=== PATIENT | male | born 1980 | race American Indian/Alaskan Native ===

== ENCOUNTER 2017-02-18 09:00 | Emergency (ER) | payer MEDICAID ==
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
[2017-02-18 11:07] VITALS: BP 130/70
== END 2017-02-18 11:10 | disposition home or self-care (01) ==
LOC: ED 09:00
DX: M54.5 Low back pain (principal); F17.200 Nicotine dependence, unspecified, uncomplicated
CPT/HCPCS: 99282

== ENCOUNTER 2017-02-21 05:38 | Emergency (ER) | payer MEDICAID ==
[2017-02-21 06:06] VITALS: BP 141/97
[2017-02-21 06:35] LABS: Basophils % (Auto) 0.7 % (0.0-1.8); Eosinophils % (Auto) 2.1 % (0.0-4.3); Hematocrit 36.5 % (35.5-45.6); Hemoglobin 12.3 gm/dl (11.8-15.2); Mean Corpuscular HGB Conc 34 % (32-34); Mean Corpuscular Hemoglobin 28 pg (28-32); Mean Corpuscular Volume 84 fl (84-94); Platelet Count 169 K/mm3 (140-440); Red Blood Count 4.37 M/mm3 (3.65-5.03); Red Cell Distribution Width 14.7 % (13.2-15.2); White Blood Count 6.9 K/mm3 (4.5-11.0)
[2017-02-21 06:48] LABS: Anion Gap 20 mmol/L; Blood Urea Nitrogen 21 mg/dL (9-20); Calcium 9.4 mg/dL (8.4-10.2); Carbon Dioxide 23 mmol/L (22-30); Glucose 117 mg/dL (75-100); Potassium 4.4 mmol/L (3.6-5.0); Sodium 139 mmol/L (137-145)
== END 2017-02-21 10:53 | disposition left against medical advice (07) ==
LOC: ED 05:38
DX: Z76.0 Encounter for issue of repeat prescription (principal); Z53.21 Procedure and treatment not carried out due to patient leaving prior to being seen by health care provider
CPT/HCPCS: 36415; 80048; 85025; G0480; 80320

== ENCOUNTER 2019-02-16 23:05 | Emergency (ER) | payer MEDICAID ==
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
[2019-02-17 00:22] LABS: Basophils # (Auto) 0.1 K/mm3 (0.0-0.1); Basophils % (Auto) 1.2 % (0.0-1.8); Eosinophils # (Auto) 0.1 K/mm3 (0.0-0.4); Hemoglobin 12.9 gm/dl (11.8-15.2); Lymphocytes # (Auto) 1.9 K/mm3 (1.2-5.4); Lymphocytes % (Auto) 27.7 % (13.4-35.0); Mean Corpuscular HGB Conc 33 % (32-34); Mean Corpuscular Volume 87 fl (84-94); Monocytes # (Auto) 0.4 K/mm3 (0.0-0.8); Monocytes % (Auto) 6.5 % (0.0-7.3); Platelet Count 170 K/mm3 (140-440); Red Cell Distribution Width 13.3 % (13.2-15.2)
[2019-02-17 00:30] LABS: Bilirubin,Urine NEG (Negative); Blood,Urine NEG (Negative); Color,Urine Amber (Yellow); Mucus,Urine 3+ /HPF; Urobilinogen,Urine < 2.0 mg/dL (<2.0)
[2019-02-17 00:37] LABS: Amphetamine Screen,Urine PRESUMPTIVE NEGATIVE; Benzodiazepines Screen,Urine PRESUMPTIVE NEGATIVE; Cocaine Screen,Urine PRESUMPTIVE NEGATIVE; Methadone Screen,Urine PRESUMPTIVE NEGATIVE; Opiate Screen,Urine PRESUMPTIVE NEGATIVE
[2019-02-17 00:43] LABS: BUN/Creatinine Ratio 9; Blood Urea Nitrogen 9 mg/dL (9-20); Calcium 9.4 mg/dL (8.4-10.2); Hemolysis Index 6
[2019-02-17 01:11] LABS: Cannabinoid Screen,Urine PRESUMPTIVE POSITIVE
--- NOTE | 2019-02-17 13:22 | Consultation ---
History of Present Illness - Reason for Consult Consult date: 02/17/19 Reason for consult: Mental Health EValuation Requesting physician: RICO OLIVIA III - Chief Complaint Chief complaint: "I was brought here" - History of Present Psychiatric Illness 38 y.o. who presented to the ER for acute psychosis. Today the patient was disorganized during the assessment. He had to be redirected throughout the interview. He was able to state that he receive the monthly Invega injection. The last injection was given Aug 2018 per the patient. He is adamant that he isn't sure why he was brought to the ER. Overall, the patient wasn't a good historian. No gestures of SI/HI's. Medications and Allergies Allergies Allergy/AdvReac Type Severity Reaction Status Date / Time No Known Allergies Allergy Verified 07/12/14 13:36 Home Medications Medication Instructions Recorded Confirmed Last Taken Type HYDROcodone/APAP 5-325 [[place] 1 each PO Q6HR PRN #8 tablet 02/18/17 Unknown Rx 5/325] Past psychiatric history - Past Medical History Past Medical History: No medical history Past Surgical History: No surgical history - past Psychiatric treatment and history psychiatric treatment history: Several inpatient psy settings in the past. unable to obtain a [facility] psy hx. - Social History Social history: lives with family Mental Status Exam - Vital signs Last Vital Signs Temp 98.4 F 02/17/19 09:00 Pulse 60 02/17/19 09:00 Resp 18 02/17/19 09:00 BP 144/84 02/17/19 09:00 Pulse Ox 100 02/17/19 09:00 - Exam Narrative exam: MSE: Appearance: disheveled Behavior: regular eye contact Speech: regular rate and tone Mood: "okay" Affect: congruent to mood Thought Process: disorganized Thought Content: no gestures of SI/HI's Motor Activity: lying in bed Cognition: A/O x 3 Insight: poor Judgment: poor Results Result Diagrams: 02/17/19 00:04 02/17/19 00:04 Abnormal lab results 02/16/19 02/17/19 02/17/19 Range/Units 23:50 00:04 00:04 Potassium (3.6-5.0) mmol/L Glucose (75-100) mg/dL Ur Specific [place] 1.038 H (1.003-1.030) Salicylates < 0.3 L (2.8-20.0) mg/dL Acetaminophen < 5.0 L (10.0-30.0) ug/mL 02/17/19 Range/Units 00:04 Potassium 3.4 L (3.6-5.0) mmol/L Glucose 183 H (75-100) mg/dL Ur Specific [place] (1.003-1.030) Salicylates (2.8-20.0) mg/dL Acetaminophen (10.0-30.0) ug/mL All other labs normal. Assessment and Plan Assessment and plan: Impression: Unspecified Psychosis. Cannabis Use DO. Today the patient was disorganized during the assessment. DDx: Schizophrenia, Bipolar DO with psychosis, Substance Induced Psychosis Recommendations/Plan: Continue 1013. Start Invega 3 mg PO daily for psychosis. Attempted to discuss possible metabolic side effects of Invega with the patient. Baseline A1c/Lipid panel ordered for the AM. Dispo: The patient was referred to inpatient psy services. Staffed with Dr Rosemarie Castillo.
[2019-02-17] MEDS: INVEGA PO SCH (14:16)
[2019-02-18] MEDS ORDERED: GEODON IM ONE ×2 (01:56→02:00)
[2019-02-18] MEDS ORDERED: ATIVAN IM STA (01:57)
[2019-02-18] MEDS ORDERED: WATER FOR INJ Sterile (PF) 10 ML ONE (02:00)
[2019-02-18] MEDS ORDERED: ATIVAN ONE (02:01)
--- NOTE | 2019-02-18 10:49 | Progress Note ---
Subjective - Reason for Consult Consult date: 02/18/19 Reason for consult: Psychiatry Follow-up - Chief Complaint Chief complaint: "I get a shot" 38 y.o. who presented to the ER for acute psychosis. Today the patient was still disorganized during the assessment. He is adamant that he need a injection (Invega). He had to be redirected several times to keep him on topic when asked questions. He denies SI/HI's and VH's. He could not confirm or deny AH's. No indications of side effects from his medication. Mental Status Exam - Vital signs Last Vital Signs Temp 98.3 F 02/18/19 07:00 Pulse 59 L 02/18/19 07:00 Resp 16 02/18/19 07:00 BP 135/75 02/18/19 07:00 Pulse Ox 100 02/18/19 07:00 - Exam Narrative exam: MSE: Appearance: calm, disheveled Behavior: regular eye contact Speech: regular rate and tone Mood: "okay" Affect: congruent to mood Thought Process: still disorganized Thought Content: denies SI/HI's and VH's Motor Activity: lying in bed Cognition: A/O x 3 Insight: poor Judgment: poor Assessment and Plan Impression: Unspecified Psychosis. Cannabis Use DO. Today the patient was still disorganized during the assessment. DDx: Schizophrenia, Bipolar DO with psychosis, Substance Induced Psychosis Recommendations/Plan: Continue 1013 and Invega 3 mg PO daily for psychosis. Attempted to discuss possible metabolic side effects of Invega with the patient. Dispo: The patient was referred to inpatient psy services. Will staff with Dr Rosemarie Castillo.
[2019-02-18] MEDS: INVEGA PO SCH (11:00)
[2019-02-18 12:12] LABS: Chol/HDL Ratio 2.12 %
[2019-02-19] MEDS ORDERED: LIDOCAINE VISCOUS 2% PO ONE (06:13)
[2019-02-19] MEDS ORDERED: ALUM-MAG HYDROX-SIMETH 200-200-20MG/5ML PO ONE (10:00)
[2019-02-19] MEDS: INVEGA PO SCH (11:00)
--- NOTE | 2019-02-19 12:08 | Progress Note ---
Subjective - Reason for Consult Consult date: 02/19/19 Reason for consult: Psychiatry Follow-up - Chief Complaint Chief complaint: "I'm trying to move on" 38 y.o. who presented to the ER for acute psychosis. Today the patient was irritable and disorganized during the assessment. He's experiencing loose associations when asked questions. His topic of discussion are irrelevant throughout the interview. He denies SI/HI's and AVH's. No indications of side effects from his medication. Mental Status Exam - Vital signs Last Vital Signs Temp 98.9 F 02/18/19 21:30 Pulse 78 02/18/19 21:30 Resp 18 02/18/19 21:30 BP 155/89 02/18/19 21:30 Pulse Ox 99 02/18/19 21:30 - Exam Narrative exam: MSE: Appearance: disheveled Behavior: regular eye contact Speech: regular rate and tone Mood: irritable Affect: congruent to mood Thought Process: still disorganized Thought Content: denies SI/HI's and VH's Motor Activity: lying in bed Cognition: A/O x 3 Insight: poor Judgment: poor Assessment and Plan Impression: Unspecified Psychosis. Cannabis Use DO. Today the patient was still disorganized during the assessment. DDx: Schizophrenia, Bipolar DO with psychosis, Substance Induced Psychosis Recommendations/Plan: Continue 1013 and increase Invega to 6 mg PO daily for psychosis. Attempted to discuss possible metabolic side effects of Invega with the patient. Dispo: The patient was referred to inpatient psy services. Staffed with Dr Rosemarie Castillo.
[2019-02-19] MEDS ORDERED: ATIVAN IM ONE (12:23)
[2019-02-19] MEDS ORDERED: ATIVAN ONE (12:27)
--- NOTE | 2019-02-20 09:47 | Progress Note ---
Subjective - Reason for Consult Consult date: 02/20/19 Reason for consult: Psychiatry Follow-up - Chief Complaint Chief complaint: "I'm going home today" 38 y.o. who presented to the ER for acute psychosis. Today the patient was still irritable and disorganized during the assessment. He continue to be preoccupied. He denies SI/HI's and VH's. No indications of side effects from his medication. Mental Status Exam - Vital signs Last Vital Signs Temp 98.6 F 02/20/19 01:00 Pulse 106 H 02/20/19 01:00 Resp 18 02/20/19 01:00 BP 132/90 02/20/19 01:00 Pulse Ox 100 02/20/19 01:00 - Exam Narrative exam: MSE: Appearance: disheveled Behavior: regular eye contact Speech: rapid Mood: still irritable Affect: congruent to mood Thought Process: still disorganized Thought Content: denies SI/HI's and VH's Motor Activity: lying in bed Cognition: A/O x 3 Insight: poor Judgment: poor Assessment and Plan Impression: Unspecified Psychosis. Cannabis Use DO. Today the patient was still disorganized during the assessment. DDx: Schizophrenia, Bipolar DO with psychosis, Substance Induced Psychosis Recommendations/Plan: Continue 1013 and iInvega 6 mg PO daily for psychosis. Attempted to discuss possible metabolic side effects of Invega with the patient. Dispo: The patient was accepted at [facility] for inpatient psy services. Staffed with Dr Rosemarie Castillo.
[2019-02-20 09:53] VITALS: BP 138/89
[2019-02-20] MEDS ORDERED: INVEGA PO SCH (10:00)
== END 2019-02-20 09:54 ==
LOC: EEVIPCON 23:05 → ED 23:05
DX: F29 Unspecified psychosis not due to a substance or known physiological condition (principal); F22 Delusional disorders; F20.1 Disorganized schizophrenia; F17.200 Nicotine dependence, unspecified, uncomplicated; R73.9 Hyperglycemia, unspecified; Z98.890 Other specified postprocedural states
CPT/HCPCS: 36415; 80048; 80061; 80307; 81001; 82962; 83036; 85025; 96372; 99285; J2060; J3486; 80320; G0480

== ENCOUNTER 2019-08-06 11:55 | Emergency (ER) | payer MEDICAID ==
--- NOTE | 2019-08-06 13:09 | Emergency Department Report ---
Chief Complaint: Medical Clearance Stated Complaint: INJECTION Time Seen by Provider: 08/06/19 13:08 - HPI History of Present Illness: 39 y/o male here for routine haldol maintenance injection no pain no complaints gcs 15 no hi no si exam wnl no emergent condition present given outpatient resources S1, S2, regular rate and rhythm. No murmurs, rubs or gallops. Breath sounds clear to auscultation bilaterally. Abdomen soft and benign, with no rebound, guarding or peritoneal signs. Head is normocephalic atraumatic. The neck is supple. There is no adenopathy. Extraocular movements are intact. there is no facial droop. The tongue is midline. The extraocular movements are intact bilaterally. Hearing is intact. Phonation is within normal limits. Speech is fluid and luccid. There is 5 out of 5 strength in 4 extremities. Sensation is intact to light touch in 4 extremities. in. There is a normal gait. Vital Signs 08/06/19 13:05 Temperature 98.2 F Pulse Rate 78 Respiratory 20 Rate Blood Pressure 120/80 O2 Sat by Pulse 100 Oximetry MSE screening note: Focused history and physical exam performed. Due to findings the following was ordered: ED Disposition for MSE Clinical Impression: General medical exam Disposition: Z-07 MED SCREENING EXAM-LEFT Is pt being admited?: No Does the pt Need Aspirin: No Condition: Stable Additional Instructions: continue outpatient medications follow up with a pmd or psychiatrist within the next 2 weeks return right away if worse Referrals: BONI MONIQUE MD [Staff Physician] - 3-5 Days [facility] [Provider Group] - 3-5 Days [facility] [Provider Group] - 3-5 Days [facility] [Outside] - 3-5 Days
[2019-08-06 13:15] VITALS: BP 120/80
== END 2019-08-06 15:46 | disposition left against medical advice (07) ==
LOC: ED 11:55
DX: Z00.00 Encounter for general adult medical examination without abnormal findings (principal)
CPT/HCPCS: 99281

== ENCOUNTER 2020-04-24 19:59 | Emergency (ER) | payer MEDICAID ==
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
[2020-04-24] MEDS ORDERED: IBUPROFEN 800 MG TAB PO ONE (23:18)
[2020-04-25 00:32] VITALS: BP 124/80
== END 2020-04-24 23:41 | disposition home or self-care (01) ==
LOC: ED 19:59
DX: M54.5 Low back pain (principal); G89.29 Other chronic pain; F20.0 Paranoid schizophrenia; F17.200 Nicotine dependence, unspecified, uncomplicated; Z98.890 Other specified postprocedural states; Z79.1 Long term (current) use of non-steroidal anti-inflammatories (NSAID); Z79.899 Other long term (current) drug therapy
CPT/HCPCS: 99282

== ENCOUNTER 2020-05-25 18:14 | Emergency (ER) | payer MEDICAID ==
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
--- NOTE | 2020-05-25 20:17 | Cat Scan Report ---
CT head/brain wo con INDICATION / CLINICAL INFORMATION: 39 years Male; Syncope/altered mental status. TECHNIQUE: Routine CT head without contrast. All CT scans at this location are performed using CT dos e reduction for ALARA by means of automated exposure control. COMPARISON: The study is compared to the previous CT of 06/26/2014. FINDINGS: BRAIN / INTRACRANIAL CONTENTS: The brain appears to demonstrate appropriate attenuation without signi ficant interval change from the previous CT. The ventricular system remains within normal limits in s ize and configuration. There is no clear CT evidence of acute intracranial hemorrhage or significant mass effect. 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 SINUSES / MASTOIDS: No significant abnormality in the visualized paranasal sinuses or mastoid air martell ls. CRANIOCERVICAL JUNCTION: No significant abnormality. ADDITIONAL FINDINGS: None. IMPRESSION: 1. There is no CT evidence of acute intracranial process. Signer Name: Lui Steel MD Signed: 05/25/2020 8:12 PM Workstation Name: [id number]
[2020-05-25 20:20] LABS: Basophils % (Auto) 0.3 % (0.0-1.8); Eosinophils # (Auto) 0.1 K/mm3 (0.0-0.4); Eosinophils % (Auto) 0.7 % (0.0-4.3); Hematocrit 42.5 % (35.5-45.6); Hemoglobin 14.3 gm/dl (11.8-15.2); Lymphocytes # (Auto) 1.4 K/mm3 (1.2-5.4); Lymphocytes % (Auto) 8.4 % (13.4-35.0); Mean Corpuscular HGB Conc 34 % (32-34); Mean Corpuscular Volume 86 fl (84-94); Platelet Count 234 K/mm3 (140-440); Red Blood Count 4.93 M/mm3 (3.65-5.03); Red Cell Distribution Width 13.8 % (13.2-15.2)
[2020-05-25 20:30] LABS: INR 0.91 (0.87-1.13)
[2020-05-25 20:40] LABS: Alanine Aminotransferase 22 units/L (7-56); Albumin 4.9 g/dL (3.9-5); BUN/Creatinine Ratio 9; Blood Urea Nitrogen 9 mg/dL (9-20); Calcium 10.1 mg/dL (8.4-10.2); Creatine Kinase MB 6.4 ng/mL (0.0-4.0); Hemolysis Index 12
--- NOTE | 2020-05-25 21:00 | Cat Scan Report ---
CT cervical spine wo con INDICATION / CLINICAL INFORMATION: 39 years Male; Syncope, neck pain. TECHNIQUE: Axial CT images of the cervical spine were obtained. Sagittal and coronal reformatted images were pr oduced. All CT scans at this location are performed using CT dose reduction for ALARA by means of aut omated exposure control. COMPARISON: None available. FINDINGS: POST-SURGICAL CHANGES: None. ALIGNMENT: This mild reversal of the cervical lordosis and curvature of the cervical spine, convex to valle the left. However, there is no significant spondylolisthesis. VERTEBRAE: There is thickened disc space narrowing anteriorly at C3-4, C4-5 and C5-6 with anterior os sific information. There is no CT evidence of acute fracture involving the cervical spine. INTRAVERTEBRAL DISCS: The central disc bulge at C3-4 mildly effaces the ventral subarachnoid space. T here is also mild neural foraminal narrowing bilaterally. There is a more broad-based central disc bulge at C4-5 which appears to slightly flatten the ventral cord. There is marked right and moderate left neural foraminal narrowing. There is more focal spondylosis at C5-6 which effaces the ventral subarachnoid space. There is modera te left neural foraminal narrowing at. There is milder posterior spondylosis at C6-7. PARASPINAL SOFT TISSUES: No prevertebral soft tissue fluid collections are identified. There are mult iple cervical lymph nodes, particularly within the jugulodigastric region which are nonspecific thoug h may be reactive. ADDITIONAL FINDINGS: None. IMPRESSION: 1. There is no CT evidence of acute fracture involving the cervical spine. 2. There are multilevel degenerative changes as detailed above. Signer Name: Lui Steel MD Signed: 05/25/2020 8:55 PM Workstation Name: [id number]
[2020-05-25 22:30] LABS: Bilirubin,Urine NEG (Negative); Blood,Urine NEG (Negative); Color,Urine Yellow (Yellow); Hyaline Casts,Urine 8 /LPF; Mucus,Urine FEW /HPF; Protein,Urine <15 mg/dL mg/dL (Negative); Urobilinogen,Urine < 2.0 mg/dL (<2.0)
[2020-05-25 22:34] LABS: Amphetamine Screen,Urine Negative; Benzodiazepines Screen,Urine Negative; Cocaine Screen,Urine Negative; Methadone Screen,Urine Negative; Opiate Screen,Urine Negative
[2020-05-25 23:04] LABS: Cannabinoid Screen,Urine Positive
[2020-05-26] MEDS ORDERED: SODIUM CHLORIDE 0.9% 1000 ML 1,000 ML IV ONE ×2 (01:49→01:51)
--- NOTE | 2020-05-26 02:16 | XRay Report ---
CHEST 1 VIEW INDICATION: Leukocytosis. COMPARISON: None. FINDINGS: Support devices: None. Heart: Normal. Lungs/Pleura: No acute pulmonary or pleural findings. IMPRESSION: 1. No acute findings. Signer Name: Deshawn Girard MD Signed: 05/26/2020 2:11 AM Workstation Name: [id number]
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
[2020-05-26 12:05] VITALS: BP 105/80
== END 2020-05-26 12:20 | disposition left against medical advice (07) ==
LOC: ED 18:14
DX: F20.89 Other schizophrenia (principal); F15.10 Other stimulant abuse, uncomplicated
CPT/HCPCS: 36415; 70450; 71045; 72125; 80053; 80307; 81001; 82550; 82553; 84484; 85025; 85610; 93005; 96360; 99285; J7030; 80320; G0480

== ENCOUNTER 2020-09-14 06:48 | Emergency (ER) | payer MEDICAID ==
[2020-09-14 07:09] VITALS: BP 116/82
[2020-09-14] MEDS ORDERED: HYDROcodone/ACETAMINOPHEN 5-325 MG TAB PO ONE (07:48)
[2020-09-14] MEDS ORDERED: KETOROLAC 30 MG/1 ML INJ IM ONE (07:48)
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
== END 2020-09-14 09:04 | disposition home or self-care (01) ==
LOC: ED 06:48
DX: M54.30 Sciatica, unspecified side (principal); F17.200 Nicotine dependence, unspecified, uncomplicated; Z98.890 Other specified postprocedural states; Z79.1 Long term (current) use of non-steroidal anti-inflammatories (NSAID); Z79.899 Other long term (current) drug therapy
CPT/HCPCS: 96372; 99283; J1885

== ENCOUNTER 2021-06-01 22:27 | Emergency (ER) | payer MEDICAID ==
[2021-06-02] MEDS ORDERED: oxyCODONE /ACETAMINOPHEN 5-325MG TAB PO ONE (01:29)
[2021-06-02] MEDS ORDERED: IBUPROFEN 600 MG TAB PO ONE (01:29)
[2021-06-02] MEDS ORDERED: predniSONE 20 MG TAB PO ONE (01:29)
[2021-06-02] MEDS ORDERED: ONDANSETRON 4 MG ODT TAB PO ONE (01:30)
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
[2021-06-02 02:32] VITALS: BP 142/80
== END 2021-06-02 02:50 | disposition home or self-care (01) ==
LOC: ED 22:27
DX: M54.50 Low back pain, unspecified (principal); G89.29 Other chronic pain; M54.2 Cervicalgia; M62.830 Muscle spasm of back; F17.200 Nicotine dependence, unspecified, uncomplicated; Z79.899 Other long term (current) drug therapy
CPT/HCPCS: 99283; J7512

== ENCOUNTER 2021-06-04 04:53 | Emergency (ER) | payer MEDICAID ==
[2021-06-04] MEDS ORDERED: ZIPRASIDONE MESYLATE 20 MG VIAL IM ONE (06:32)
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
[2021-06-04] MEDS ORDERED: diphenhydrAMINE 50 MG/ML VIAL IM ONE (07:39)
--- NOTE | 2021-06-04 10:12 | Consultation ---
History of Present Illness - Reason for Consult Consult date: 06/04/21 Reason for consult: psychosis - History of Present Psychiatric Illness Amber Santos is a 40y/o male patient who presented to the ER for a psych evaluation. He was anxious and paranoid at that time. During the eval the patient was irritable, and refused to cooperate. The sitter says he had been medicated. The patient did arouse but did not cooperate. He is in the seclusion room. Psych History Unable to obtain Social History Unable to obtain REVIEW OF SYSTEMS Unable to obtain MENTAL STATUS EXAMINATION Unable to obtain Assessment and Plan (1) Acute Psychosis Treatment Plan 1013 Risperidone 0.5mg po BID Doxepin 10mg po qhs Medical: per primary Sitter: per primary Disposition: recommend acute psychiatric inpatient treatment. Will follow. Thanks Case staffed with Dr. Madrigal Medications and Allergies Allergies Allergy/AdvReac Type Severity Reaction Status Date / Time No Known Allergies Allergy Verified 12/12/19 13:08 Home Medications Medication Instructions Recorded Confirmed Last Taken Type HYDROcodone/APAP 5-325 [[place] 1 each PO Q6HR PRN #8 tablet 02/18/17 Unknown Rx 5/325] Ibuprofen [Motrin 400 MG tab] 400 mg PO TID 5 Days #15 tablet 09/14/20 Unknown Rx Ibuprofen [Motrin 800 MG tab] 800 mg PO Q8HR PRN #30 tablet 06/02/21 Unknown Rx methocarbamoL [Methocarbamol] 500 mg PO Q12H PRN #24 tablet 06/02/21 Unknown Rx predniSONE [Deltasone] 50 mg PO QDAY 5 Days #5 tab 06/02/21 Unknown Rx Mental Status Exam - Vital signs Last Vital Signs Temp 98.8 F 06/04/21 04:58 Pulse 65 06/04/21 04:58 Resp BP 131/88 06/04/21 04:58 Pulse Ox Results All other labs normal.
[2021-06-04] MEDS ORDERED: HALOPERIDOL LACTATE 5 MG/1 ML INJ IM ONE (10:49)
[2021-06-04] MEDS ORDERED: diphenhydrAMINE 50 MG/ML VIAL ONE (10:56)
[2021-06-04] MEDS: risperiDONE 0.25 MG TAB PO SCH ×2 (11:14→21:46)
[2021-06-04 11:33] LABS: Basophils % (Auto) 0.7 % (0.0-1.8); Eosinophils # (Auto) 0.1 K/mm3 (0.0-0.4); Eosinophils % (Auto) 2.3 % (0.0-4.3); Hemoglobin 12.5 gm/dl (11.8-15.2); Lymphocytes # (Auto) 1.2 K/mm3 (1.2-5.4); Lymphocytes % (Auto) 22.4 % (13.4-35.0); Mean Corpuscular HGB Conc 33 % (32-34); Mean Corpuscular Volume 85 fl (84-94); Monocytes # (Auto) 0.6 K/mm3 (0.0-0.8); Monocytes % (Auto) 11.2 % (0.0-7.3); Platelet Count 175 K/mm3 (140-440); Red Cell Distribution Width 13.4 % (13.2-15.2)
[2021-06-04 11:52] LABS: Alanine Aminotransferase 21 units/L (7-56); Albumin 4.4 g/dL (3.9-5); BUN/Creatinine Ratio 10; Blood Urea Nitrogen 8 mg/dL (9-20); Calcium 9.7 mg/dL (8.4-10.2); Hemolysis Index 4
[2021-06-04] MEDS: DOXEPIN 10 MG CAP PO SCH (21:46)
[2021-06-05] MEDS ORDERED: ZIPRASIDONE MESYLATE 20 MG VIAL IM ONE ×3 (02:04→08:02)
--- NOTE | 2021-06-05 02:07 | Event Note ---
Patient is agitated. Nurse informed me that he masturbated in front of the female patients. He is currently not following any commands. I have ordered chemical restraint to administer Geodon. Multiple staff members at the bedside. I ordered seclusion.
[2021-06-05] MEDS ORDERED: diphenhydrAMINE 50 MG/ML VIAL IM ONE (08:03)
[2021-06-05] MEDS ORDERED: LORazepam 2 MG/ML VIAL IM ONE (08:04)
--- NOTE | 2021-06-05 11:23 | Progress Note ---
Subjective - Reason for Consult Consult date: 06/05/21 Reason for consult: agitation - Chief Complaint Chief complaint: The patient was seen today. He is sleeping, and difficult to arouse initially. He is physically disabled, and his gait is impaired. The patient is at times difficult to understand. When asking the patient did he talk like this all the time, he says "no, I was medicated." The nurse verified this as true. The patient says he was brought here by the ambulance. He says "my mom had me sent here." The patient says he was angry and throwing his property. He says "I was upset. It's my property if I want to throw it." He denies SI/HI. When asking if her was having any hallucinations, the patient replied "at times I hear things. But I'm not hearing anything now." The nursing staff states the patient has been masturbating all night and trying to go in a room and get to another female patient. REVIEW OF SYSTEMS Constitutional: Negative for weight loss ENT: Negative for stridor Respiratory: Negative for cough or hemoptysis All other systems reviewed and are negative MENTAL STATUS EXAMINATION General Appearance and Behavior: Age appropriate, good hygiene, wearing appropriate clothes. calm, cooperative, drowsy, falling asleep during visit Cooperation: cooperative Psychomotor Behavior: Psychomotor normal Mood: alright, tired Affect and affective range: congruent with stated mood Thought Process: circumstantial Thought Content: None Speech: slurred Suicidal Ideation: Denies Homicidal Ideation: Denies Hallucinations: Denies Delusions: None elicited Impulse Control: Limited Insight and Judgment: Limited Memory: limited Attention: drowsy Orientation: alert and oriented Assessment and Plan (1) Acute Psychosis Treatment Plan d/c 1013 Risperidone 0.5mg po BID Doxepin 10mg po qhs Medical: per primary Sitter: per primary Disposition: Do not recommend acute psychiatric inpatient treatment. The geospatial applications developer to give the patient all necessary outpatient resources Will sign off. Thanks Case staffed with Dr. Madrigal Mental Status Exam - Vital signs Last Vital Signs Temp 98.2 F 06/05/21 09:50 Pulse 66 06/05/21 09:50 Resp 18 06/05/21 09:50 BP 126/90 06/05/21 09:50 Pulse Ox 99 06/05/21 09:50
--- NOTE | 2021-06-05 13:20 | Event Note ---
Date: 06/05/21 40-year-old female with psychosis/paranoia requiring 1013. Patient was seen by my colleague and was medically cleared for psychiatric evaluation and placement. Overnight, the patient became agitated and apparently masturbated in front of other female patients and required chemical sedation. Again this morning he became agitated and required chemical sedation. He was seen by the psychiatry team who recommended discontinuing the 1013 order. However, I spoke with the psychiatry service MEASUREMENT TECHNICIAN regarding the fact that the patient required chemical s edation only a few hours prior to her assessment and she agreed that the patient should not be discharged today but that they will reassess the patient tomorrow. Vitals reviewed and are stable. Currently awaiting psychiatric reassessment tomorrow.
[2021-06-05] MEDS: DOXEPIN 10 MG CAP PO SCH (21:50)
[2021-06-05] MEDS ORDERED: diphenhydrAMINE 50 MG/ML VIAL IM PRN (21:59)
[2021-06-05] MEDS ORDERED: ZIPRASIDONE MESYLATE 20 MG VIAL IM PRN (21:59)
[2021-06-05] MEDS ORDERED: LORazepam 2 MG/ML VIAL IM PRN (21:59)
[2021-06-05] MEDS: risperiDONE 0.25 MG TAB PO SCH (22:11)
[2021-06-06 10:47] LABS: Bilirubin,Urine NEG (Negative); Blood,Urine NEG (Negative); Color,Urine Yellow (Yellow); Mucus,Urine FEW /HPF; Protein,Urine <15 mg/dL mg/dL (Negative); Urobilinogen,Urine < 2.0 mg/dL (<2.0)
[2021-06-06] MEDS: risperiDONE 0.25 MG TAB PO SCH ×3 (10:50→22:00)
--- NOTE | 2021-06-06 17:57 | Emergency Department Report ---
Blank Doc - Documentation Documentation: Chart reviewed. 40-year-old male seen on 1013 for recurrent outbursts and mas turbating. Refusing p.o. medications. Awaiting placement
[2021-06-06] MEDS: DOXEPIN 10 MG CAP PO SCH (22:00)
--- NOTE | 2021-06-07 09:01 | Event Note ---
Date: 06/07/21 This patient was seen today and cleared by psych a couple of days ago. A request was made for me to reevaluate the patient, as the ER doc did not feel comfortable discharging this patient. He's a/o 3. He denies SI/HI, and states "I was never that and they are forcing me to be here and take medications." He also denies any fear or feeling of endangerment. The patient denies hallucinations of any kind. I spoke with the nurse caring for the patient and security. They both state they have not had any aggression or psychosis out of this patient. The nurse says the patient's only problem is that he masturbates. The patient's disposition still stands as clear from a psych standpoint; as masturbation does not meet clinical criteria for inpatient psych placement nor a 1013 hold. Treatment Plan d/c 1013 Risperidone 0.5mg po BID Doxepin 10mg po qhs Medical: per primary Sitter: per primary Disposition: Do not recommend acute psychiatric inpatient treatment. The designer/writer to give the patient all necessary outpatient resources Will sign off. Thanks Case staffed with Dr. Madrigal
[2021-06-07] MEDS: risperiDONE 0.25 MG TAB PO SCH (10:15)
[2021-06-07 11:41] VITALS: BP 120/72
--- NOTE | 2021-06-07 12:24 | Event Note ---
Date: 06/07/21 Patient today is calm and stated that he is feeling much better. Patient has been seen by our psychiatric team and advised to discharge patient home and follow-up as an outpatient. Patient denied any suicidal homicidal ideation. Patient denied any visual or auditory hallucination. Patient is medically and psychiatrically stable for discharge.
--- NOTE | 2021-06-07 13:37 | XRay Report ---
CERVICAL SPINE HISTORY: Neck injury, pain. COMPARISON: None. TECHNIQUE: 3 view(s) of the cervical spine obtained. FINDINGS: Vertebrae: Patient is status post anterior cervical discectomy and fusion spanning C4-C7. The hardwar e appears intact and there is no evidence of hardware failure. No evidence of acute osseous injury. Disc Spaces:Mild degenerative change at C3/C4 disc space. Facet Joints:No significant abnormality. Prevertebral Soft Tissues:No significant abnormality. Additional findings: None. IMPRESSION: Patient is status post anterior cervical discectomy and fusion spanning C4-C7. No evidence of hardwar e failure or complication. Mild degenerative change at C3/C4 disc space. Signer Name: Lui Fuchs MD Signed: 06/07/2021 1:33 PM Workstation Name: [id number]
[2021-06-07] MEDS ORDERED: IBUPROFEN 600 MG TAB PO ONE (13:39)
== END 2021-06-07 13:56 | disposition home or self-care (01) ==
LOC: ED 04:53
DX: F22 Delusional disorders (principal); M54.2 Cervicalgia
CPT/HCPCS: 36415; 72050; 80053; 81001; 84443; 85025; 96372; 99285; J1200; J1630; J2060; J3486; 80320; G0480